=== PATIENT | male | born 1950 | race American Indian/Alaskan Native ===

== ENCOUNTER 2017-09-10 08:55 | Inpatient (IN) | payer MEDICARE ==
--- NOTE | 2017-09-10 09:28 | Emergency Department Report ---
ED Chest Pain HPI - General Stated Complaint: MO Time Seen by Provider: 09/10/17 09:05 - History of Present Illness Initial Comments: This is a 67 year-old male presents to the emergency department by EMS from home with complaint of left arm numbness, left-sided neck pain and some dizziness after taking his morning Plavix, aspirin and metoprolol. The patient was just discharged from [facility] yesterday after being here for a few days, having a left-sided heart cath and having a stent placed in the right coronary artery. These were the same symptoms approximately a minute a few days ago. His punch card operator is Dr. Mathews with [facility] and the catheterization was done by Dr. Santos. He denies any chest pain, shortness of breath, fever, nausea, vomiting or diaphoresis. He otherwise is previous history of coronary artery disease with previous MO, cardiomyopathy. - Related Data Home Medications Medication Instructions Recorded Confirmed Last Taken Losartan [Cozaar] 25 mg PO QDAY 09/10/17 09/10/17 09/10/17 07:30 Previous Rx's Medication Instructions Recorded Last Taken Type Aspirin [Aspirin BABY CHEW TAB] 81 mg PO DAILY #30 tab.chew 09/09/17 09/10/17 07 :30 Rx 8lmg AtorvaSTATin [Lipitor] 20 mg PO QHS #30 tablet 09/09/17 Unknown Rx Clopidogrel [Plavix] 75 mg PO DAILY #30 tablet 09/09/17 09/10/17 07:30 Rx 75mg Metoprolol [Lopressor TAB] 25 mg PO BID #60 tablet 09/09/17 09/10/17 07:30 Rx 25 mg Allergies Allergy/AdvReac Type Severity Reaction Status Date / Time acetaminophen [From Percocet] Allergy Vomiting Verified 07/22/13 21:46 oxycodone HCl [From Percocet] Allergy Vomiting Verified 07/22/13 21:46 Heart Score - HEART Score History: Moderately suspicious EKG: Non-specific Age: 45-65 Risk factors: > 3 risk factors or hx of atherosclerotic disease Troponin: 1-3x normal limit HEART Score: 6 - Critical Actions Critical Actions: 4-6 pts:12-16.6% risk of adverse cardiac event. Should be admitted ED Review of Systems ROS: Stated complaint: MO Other details as noted in HPI Comment: All other systems reviewed and negative Constitutional: denies: chills, fever Eyes: denies: eye pain, eye discharge, vision change ENT: denies: ear pain, throat pain Respiratory: denies: cough, shortness of breath, wheezing Cardiovascular: denies: chest pain, edema Gastrointestinal: denies: abdominal pain, nausea, diarrhea Genitourinary: denies: urgency, dysuria Musculoskeletal: other (left sided neck pain) Skin: denies: rash, lesions Neurological: numbness (left arm), other (dizziness) ED Past Medical Hx - Past Medical History Hx Hypertension: Yes Hx Heart Attack/AMI: Yes Additional medical history: high cholesterol - Surgical History Hx Coronary Stent: Yes Additional Surgical History: total left knee replacement, cardiac stent - Social History Smoking Status: Never Smoker Substance Use Type: None - Medications Home Medications: Home Medications Medication Instructions Recorded Confirmed Last Taken Type Aspirin [Aspirin BABY CHEW TAB] 81 mg PO DAILY #30 tab.chew 09/09/17 09/10/17 07:30 Rx 8lmg AtorvaSTATin [Lipitor] 20 mg PO QHS #30 tablet 09/09/17 09/10/17 Unknown Rx Clopidogrel [Plavix] 75 mg PO DAILY #30 tablet 09/09/17 09/10/17 09/10/17 07:30 Rx 75mg Metoprolol [Lopressor TAB] 25 mg PO BID #60 tablet 09/09/17 09/10/17 09/10/17 07 :30 Rx 25 mg Losartan [Cozaar] 25 mg PO QDAY 09/10/17 09/10/17 09/10/17 07:30 History ED Physical Exam - Other Other exam information: GENERAL: The patient is well-developed well-nourished. HENT: Normocephalic. Atraumatic. Patient has moist mucous membranes. EYES: Extraocular motions are intact. Pupils equal reactive to light bilaterally. NECK: Supple. Trachea is midline. CHEST/LUNGS: Clear to auscultation. There is no respiratory distress noted. HEART/CARDIOVASCULAR: Regular. There is no tachycardia. There is no murmur. ABDOMEN: Abdomen is soft, nontender. Patient has normal bowel sounds. There is no abdominal distention. SKIN: Skin is warm and dry. NEURO: The patient is awake, alert, and oriented. The patient is cooperative. The patient has no focal neurologic deficits. The patient has normal speech. MUSCULOSKELETAL: There is no tenderness or deformity. There is no limitation range of motion. There is no evidence of acute injury. Cap refill less than 2 seconds. Radial pulse was 2/4 bilaterally. ED Course Vital Signs 09/10/17 09/10/17 09/10/17 09:08 09:15 09:22 Temperature 98.1 F Pulse Rate 71 70 67 Respiratory 13 12 16 Rate Blood Pressure 128/93 O2 Sat by Pulse 99 100 Oximetry 09/10/17 09/10/17 09/10/17 09:29 09:30 09:45 Temperature Pulse Rate 74 68 66 Respiratory 18 17 15 Rate Blood Pressure 116/86 116/86 O2 Sat by Pulse 95 97 Oximetry 09/10/17 09/10/17 09/10/17 10:00 10:15 10:31 Temperature Pulse Rate 64 64 68 Respiratory 16 13 13 Rate Blood Pressure 105/76 105/76 113/83 O2 Sat by Pulse 98 98 98 Oximetry 09/10/17 09/10/17 09/10/17 10:45 11:01 11:15 Temperature Pulse Rate 68 74 65 Respiratory 16 17 10 L Rate Blood Pressure 113/83 112/88 112/88 O2 Sat by Pulse 98 97 97 Oximetry 09/10/17 09/10/17 09/10/17 11:31 11:45 11:47 Temperature Pulse Rate 68 67 82 Respiratory 17 17 Rate Blood Pressure 112/88 114/83 114/80 O2 Sat by Pulse 97 98 Oximetry 09/10/17 09/10/17 09/10/17 12:00 12:15 12:31 Temperature Pulse Rate 67 65 66 Respiratory 8 L 11 L 12 Rate Blood Pressure 108/79 108/79 108/79 O2 Sat by Pulse 99 96 97 Oximetry 09/10/17 09/10/17 09/10/17 12:45 13:00 13:15 Temperature Pulse Rate 74 64 65 Respiratory 15 17 18 Rate Blood Pressure 108/79 119/80 119/80 O2 Sat by Pulse 96 97 98 Oximetry 09/10/17 09/10/17 13:31 13:45 Temperature Pulse Rate 67 63 Respiratory 16 16 Rate Blood Pressure 119/80 119/80 O2 Sat by Pulse 95 97 Oximetry - Consultations Consultation #1: I spoke with the nanny babysitter for [facility], Dr. Ovalle. Originally the EKG showed concern for STEMI through EMS and a code STEMI was called but Dr Ovalle asked for it to be cancelled. Once the patient arrived, Dr. Ovalle and was sent an EKG from today's presentation as well as his last EKG from his previous admission and Dr. Ovalle does not feel that it is an ST elevation MO. He does recommend readmission and will contact his colleagues were rounding to see the patient has a consultation. 09/10/17 09:27 MARILYNN score - Marilynn Score Age > 65: (0) No Aspirin use within the Past 7 Days: (1) Yes 3 or more CAD Risk Factors: (1) Yes 2 or more Angina events in past 24 hrs: (0) No Known CAD with more than 50% Stenosis: (1) Yes Elevated Cardiac Markers: (1) Yes ST Deviation Greater than 0.5mm: (1) Yes MARILYNN Score: 5 ED Medical Decision Making - Lab Data Result diagrams: 09/10/17 11:17 09/10/17 11:17 - EKG Data -: EKG Interpreted by Me EKG shows normal: sinus rhythm, axis, intervals (prolonged UT interval), QRS complexes, ST-T waves (there are some ST elevations throughout the inferior and lateral leads) Rate: normal - EKG Data When compared to previous EKG there are: no significant change Interpretation: unchanged when compared t (09/07/17) - Radiology Data Radiology results: image reviewed interpreted by me: Chest x-ray does not show any acute process. There are no pleural effusions, obvious pneumonia and there is no pneumothorax. - Medical Decision Making The patient presents with some left arm numbness and some pain and left-sided neck but no chest pain. Originally the EKG was concern for ST elevation MO by it was seen by the punch card operator who did not feel it was ST elevation MO and did not warrant roofing laborer activation. Labs show some troponin elevation, although still in the "normal range" but the patient did just have a stent placed. The rest of labs are mostly unremarkable. Chest x-ray did not show any acute process. He will be admitted to the hospital by Dr. Zhou, and will be seen by cardiology as a consultation. - Differential Diagnosis MO, Costochondritis, GERD, Pneumonia Critical Care Time: No Critical care attestation.: If time is entered above; I have spent that time in minutes in the direct care of this critically ill patient, excluding procedure time. ED Disposition Clinical Impression: Status post cardiac catheterization, Stented coronary artery Chest pain Qualifiers: Chest pain type: unspecified Qualified Code(s): R07.9 - Chest pain, unspecified Disposition: -09 OP ADMIT IP TO THIS HOSP Is pt being admited?: Yes Condition: Stable Time of Disposition: 14:37
[2017-09-10 09:43] LABS: INR 0.98 (0.87-1.13)
[2017-09-10 09:45] LABS: Hematocrit 46.5 % (35.5-45.6); Hemoglobin 15.5 gm/dl (11.8-15.2); Mean Corpuscular HGB Conc 33 % (32-34); Mean Corpuscular Hemoglobin 31 pg (28-32); Mean Corpuscular Volume 93 fl (84-94); Platelet Count 149 K/mm3 (140-440); Red Blood Count 4.99 M/mm3 (3.65-5.03); Red Cell Distribution Width 12.6 % (13.2-15.2)
[2017-09-10 09:48] LABS: Alanine Aminotransferase 22 units/L (7-56); Albumin 3.9 g/dL (3.9-5); BUN/Creatinine Ratio 13; Blood Urea Nitrogen 15 mg/dL (9-20); Calcium 9.2 mg/dL (8.4-10.2); Hemolysis Index 6
[2017-09-10 10:34] LABS: Total Cells Counted 100
[2017-09-10 10:35] LABS: RBC Morphology Normal
--- NOTE | 2017-09-10 10:43 | History and Physical Report ---
History of Present Illness Date of examination: 09/10/17 Date of admission: 09/10/17 Chief complaint: Numbness left arm History of present illness: Pt is a 67 y/o male who has history of CAD s/p PCI x 2 the last one was yesterday, prediabetes and hypertension and was discharged yesterday from this hospital for left flank chest pain. Had normal cardiac enzymes with abnormal stress thallium.Drug elluting stent was place in [facility]. Presented to [facility] ED today on accound of numbness of the left arm after talking his med sthis morning which includes Metoprolol, ASA, plavix, Atorvastatin and Losartan. Denies any chest pain. No shortness of breath, fever PND. EKG at [facility] ED showed mild ST elevation. 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 Ovalle was consuted over the phone by the ED doctor in my present afte reviewing the EKG and did not think there was any ischemic change. CT head that was done 4 day ago showed no evidenced of ischemia. Admissionwas requested for further work up Past History Past Medical History: CAD, hypertension, hyperlipidemia Past Surgical History: PTCA Social history: denies: smoking, alcohol abuse Family history: hypertension Medications and Allergies Allergies Allergy/AdvReac Type Severity Reaction Status Date / Time acetaminophen [From Percocet] Allergy Vomiting Verified 07/22/13 21:46 oxycodone HCl [From Percocet] Allergy Vomiting Verified 07/22/13 21:46 Home Medications Medication Instructions Recorded Confirmed Last Taken Type Simvastatin PO DAILY 07/22/13 07/22/13 07/22/13 07:00 History Aspirin [Aspirin BABY CHEW TAB] 81 mg PO DAILY #30 tab.chew 09/09/17 Unknown Rx AtorvaSTATin [Lipitor] 20 mg PO QHS #30 tablet 09/09/17 Unknown Rx Clopidogrel [Plavix] 75 mg PO DAILY #30 tablet 09/09/17 Unknown Rx Lisinopril [Zestril TAB] 5 mg PO QDAY #30 tablet 09/09/17 Unknown Rx Metoprolol [Lopressor TAB] 25 mg PO BID #60 tablet 09/09/17 Unknown Rx Ranitidine HCl [Acid Hand Bulldozer] 150 mg PO Q12HRT #60 tablet 09/09/17 Unknown Rx Review of Systems Constitutional: no fever, no chills, no anorexia, no fatigue Ears, nose, mouth and throat: no ear pain, no ear discharge, no tinnitis, no decreased hearing Cardiovascular: chest pain, edema, syncope, no orthopnea, no palpitations, no rapid/irregular heart beat Respiratory: no cough, no cough with sputum, no excessive sputum, no hemoptysis Gastrointestinal: abdominal pain, vomiting Musculoskeletal: neck stiffness, neck pain, shooting arm pain, arm numbness/ tingling Integumentary: no rash, no pruritis, no redness Neurological: no transient paralysis, no paralysis, no weakness, no parathesias Psychiatric: no anxiety, no memory loss, no change in sleep habits, no sleep disturbances Endocrine: no cold intolerance, no heat intolerance, no polyphagia Exam - Constitutional Vitals: Temp Pulse Resp BP Pulse Ox 98.1 F 74 18 128/93 100 09/10/17 09:22 09/10/17 09:29 09/10/17 09:29 09/10/17 09:22 09/10/17 09:22 General appearance: Present: no acute distress, well-nourished - EENT Eyes: Present: PERRL - Neck Neck: Present: supple, normal ROM - Respiratory Respiratory effort: normal - Cardiovascular Heart Sounds: Present: S1 & S2. Absent: rub, click - Extremities Extremities: pulses symmetrical, No edema Peripheral Pulses: within normal limits - Abdominal General gastrointestinal: Present: soft, non-tender, non-distended, normal bowel sounds Male genitourinary: Present: normal - Integumentary Integumentary: Present: clear, warm, dry - Musculoskeletal Musculoskeletal: gait normal, strength equal bilaterally - Psychiatric Psychiatric: appropriate mood/affect, intact judgment & insight - Neurologic Neurologic: CNII-XII intact, moves all extremities Results - Labs CBC & Chem 7: 09/10/17 09:15 09/10/17 09:15 Labs: Abnormal lab results 09/10/17 09/10/17 Range/Units 09:15 09:15 WBC 4.3 L (4.5-11.0) K/mm3 Hgb 15.5 H (11.8-15.2) gm/dl Hct 46.5 H (35.5-45.6) % RDW 12.6 L (13.2-15.2) % Glucose 159 H (75-100) mg/dL Assessment and Plan - Numbness left arm - Abnormal EKG - Prediabeted with A1c 6.2% - Hyperlipidemial - Hypertenison Admit Tele Serial Mitesh ASA, NTG, Morphin, Statin, oxygen, BB Commence oral home antihypertensive Losartan and DVT prophylaxis with lovenox and GI with Pecid. Obrifn MTRI of the brainwithour contrst for numbnnes olfteh arm. Cardiology consulted
[2017-09-10] MEDS ORDERED: SODIUM CHLORIDE FLUSH SYRINGE 10 ML IV PRN (10:52)
[2017-09-10] MEDS ORDERED: MORPHINE IV PRN (10:52)
[2017-09-10] MEDS ORDERED: BABY ASPIRIN PO STA (10:52)
[2017-09-10] MEDS ORDERED: NITROSTAT SL PRN (10:52)
[2017-09-10 11:45] LABS: Basophils # (Auto) 0.1 K/mm3 (0.0-0.1); Basophils % (Auto) 2.2 % (0.0-1.8); Eosinophils # (Auto) 0.2 K/mm3 (0.0-0.4); Eosinophils % (Auto) 4.7 % (0.0-4.3); Hematocrit 45.5 % (35.5-45.6); Hemoglobin 15.2 gm/dl (11.8-15.2); Lymphocytes # (Auto) 1.1 K/mm3 (1.2-5.4); Lymphocytes % (Auto) 25.9 % (13.4-35.0); Mean Corpuscular HGB Conc 33 % (32-34); Mean Corpuscular Hemoglobin 31 pg (28-32); Mean Corpuscular Volume 92 fl (84-94); Monocytes # (Auto) 0.6 K/mm3 (0.0-0.8); Monocytes % (Auto) 14.5 % (0.0-7.3); Platelet Count 152 K/mm3 (140-440); Red Blood Count 4.94 M/mm3 (3.65-5.03); Red Cell Distribution Width 12.5 % (13.2-15.2)
[2017-09-10] MEDS: NITRO-BID 2% TP SCH ×2 (11:47→18:00)
--- NOTE | 2017-09-10 11:53 | XRay Report ---
AP CHEST : 09/10/17 08:55:00 CLINICAL: Chest pain. COMPARISON:09/07/17 FINDINGS: Normal heart and pulmonary vessels.Aortic tortuosity. The lungs are normally expanded and clear. The bones and soft tissues are unremarkable. IMPRESSION: No acute cardiopulmonary process.
[2017-09-10 13:28] LABS: BUN/Creatinine Ratio 12; Blood Urea Nitrogen 15 mg/dL (9-20); Calcium 9.1 mg/dL (8.4-10.2); Hemolysis Index 7
[2017-09-11] MEDS: NITRO-BID 2% TP SCH ×3 (05:35→17:55)
[2017-09-11] MEDS ORDERED: NACL 0.9% 1000 ML 1,000 ML IV ONE (07:53)
--- NOTE | 2017-09-11 07:54 | Discharge Summary ---
Providers - Providers Date of Admission: 09/10/17 13:46 Date of discharge: 09/11/17 Attending physician: BRYAN SOLOMON 09/10/17 Consult to Cardiac Rehabilitation [CONS] Routine Reason For Exam: Phase I 09/10/17 09:46 Consult to Physician [CONS] Routine Consulting Provider: JANIA BYERS Reason For Exam: chest pain, recent stent placement Place consult to:: CARDIO Notified:: Y Was contact made?: Yes If yes, spoke with:: Dr Fernandez Comment:: DR FERNANDEZ TO TEXT DR Osvaldo SINGH 09/10/17 10:53 Consult to Cardiology [CONS] Routine Consulting Provider: JANIA BYERS Reason For Exam: Chest pain in a pt with CAD s/p stent placment x2 Primary care physician: BRYAN SOLOMON Hospitalization Reason for admission: coronary artery disease, left arm numbness. Condition: Stable Pertinent studies: Enzymes were normal, MRI of the jeff Procedures: none Hospital course: Pt is a 67 y/o male who has history of CAD s/p PCI x 2 the last one was 09/09/17 , prediabetes and hypertension and was discharged 09/09/17 from this hospital for left flank chest pain. Had normal cardiac enzymes with abnormal stress thallium. Cardiac cath was done. Patent left anterior Descending arterial stent identified. Significantly occluded RCA identified. Drug elluting stent was place in the RCA. Presented to the ED today on accound of numbness of the left arm after talking his med this morning which includes Metoprolol, ASA, plavix, Atorvastatin and Losartan. Denies any facial droop, slurred speech or gait disturbance. No chest pain. No shortness of breath, fever, PND. EKG at the ED showed mild ST elevation. 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 Fernandez was consuted over the phone by the ED doctor in my present after reviewing the EKG he did not think there was any ischemic change. CT head that was done 4 day ago showed no evidenced of ischemia. Admission was requested for further work up. Patient was commenced on aspirin and Naprosyn recognizes done. Cardiology consult was obtained. He was of the patient has no evidence of ischemic changes cardiac enzymes were normal and EKG was unremarkable. He has elevated glucose level. Was commenced on glimepiride. Del Whiteside and metformin because patient had an IV diet test and cardiac catheterization 2 days ago. Numbness of the left arm has resolved. CT scan was done on admission was unremarkable. MRI obtained today. Result pending. Disposition: DC-01 TO HOME OR SELFCARE Core Measure Documentation - Palliative Care Palliative Care/ Comfort Measures: Not Applicable - Core Measures Any of the following diagnoses?: none Exam - Physical Exam Narrative exam: Constitutional: Well-nourished well-developed. In no distress Head: Normocephalic atraumatic Eyes: Pupils are equal round and reactive to light Nose: No enlarged turbinates, no septal deviation. Mouth: Moist mucous membranes. Neck: Supple no thyromegaly. No bruit. No JVD Heart: Regular rate and rhythm, S1-S2 abnormal. No rubs murmurs or gallop Lungs: Clear to auscultation bilaterally no rales or rhonchi Abdomen: Soft, nontender. Bowel sound are present. Extremities: No edema no cyanosis and no clubbing. Neuro: Alert oriented Oriented x3. No focal sensory or motor deficit. Skin: No rashes no hyperemic spots Psychiatry: Euthymic. Calm. - Constitutional Vitals: Temp Pulse Resp BP Pulse Ox 97.5 F L 74 19 112/73 99 09/11/17 05:03 09/11/17 05:35 09/11/17 05:03 09/11/17 05:35 09/11/17 05:03 Plan Activity: advance as tolerated Weight Bearing Status: Touch Down Weight Bearing Diet: diabetic Follow up with: BRYAN SOLOMON MD [Primary Care Provider] - 3-5 Days Prescriptions: metFORMIN [Glucophage] 500 mg PO BID #60 tablet
--- NOTE | 2017-09-11 09:37 | Progress Note ---
Assessment and Plan - Patient Problems (1) Chest pain Current Visit: Yes Status: Acute Qualifiers: Chest pain type: unspecified Qualified Code(s): R07.9 - Chest pain, unspecified Plan to address problem: SYMPTOMS RESOLVED & NO SS OF ACS,,,OK TO D\C WITH OFFICE F\U,,,DOESN'T LIKE METOPROLOL,,,IS ON LIPITOR AT HOME (2) Stented coronary artery Current Visit: Yes Status: Acute Subjective Date of service: 09/11/17 Interval history: NO C\O,,,WANTS TO GO Objective Vital Signs Temp Pulse Resp BP BP Pulse Ox 09/11/17 08:48 100 09/11/17 05:35 74 112/73 09/11/17 05:03 97.5 F L 74 19 112/73 99 09/11/17 05:00 67 09/11/17 01:25 98.1 F 76 19 101/59 09/10/17 20:00 69 09/10/17 19:12 97.6 F 72 17 98/78 97 09/10/17 18:00 58 L 104/72 09/10/17 16:33 65 104/72 96 09/10/17 13:51 62 18 119/80 97 09/10/17 13:45 63 16 119/80 97 09/10/17 13:31 67 16 119/80 95 09/10/17 13:15 65 18 119/80 98 09/10/17 13:00 64 17 119/80 97 09/10/17 12:45 74 15 108/79 96 09/10/17 12:31 66 12 108/79 97 09/10/17 12:15 65 11 L 108/79 96 09/10/17 12:00 67 8 L 108/79 99 09/10/17 11:47 82 114/80 09/10/17 11:45 67 17 114/83 98 09/10/17 11:31 68 17 112/88 97 09/10/17 11:15 65 10 L 112/88 97 09/10/17 11:01 74 17 112/88 97 09/10/17 10:45 68 16 113/83 98 09/10/17 10:31 68 13 113/83 98 09/10/17 10:15 64 13 105/76 98 09/10/17 10:00 64 16 105/76 98 09/10/17 09:45 66 15 116/86 97 - Physical Examination General: Appears Well HEENT: Positive: PERRL Neck: Positive: neck supple Cardiac: Positive: Regular Rate Lungs: Positive: clear to auscultation Neuro: Positive: Grossly Intact Abdomen: Positive: Unremarkable - Labs and Meds Cardiac Enzymes 09/10/17 Range/Units 09:15 AST 18 (5-40) units/L Coagulation 09/10/17 Range/Units 09:15 PT 13.5 (12.2-14.9) Sec. INR 0.98 (0.87-1.13) APTT 27.0 (24.2-36.6) Sec. CBC 09/10/17 09/10/17 Range/Units 09:15 11:17 WBC 4.3 L 4.2 L (4.5-11.0) K/mm3 RBC 4.99 4.94 (3.65-5.03) M/mm3 Hgb 15.5 H 15.2 (11.8-15.2) gm/dl Hct 46.5 H 45.5 (35.5-45.6) % Plt Count 149 152 (140-440) K/mm3 Lymph # 1.1 L (1.2-5.4) K/mm3 Swisher # 0.6 (0.0-0.8) K/mm3 Eos # 0.2 (0.0-0.4) K/mm3 Baso # 0.1 (0.0-0.1) K/mm3 Comprehensive Metabolic Panel 09/10/17 09/10/17 Range/Units 09:15 11:17 Sodium 140 141 (137-145) mmol/L Potassium 4.7 4.8 (3.6-5.0) mmol/L Chloride 99.9 100.7 (98-107) mmol/L Carbon Dioxide 28 25 (22-30) mmol/L BUN 15 15 (9-20) mg/dL Creatinine 1.2 1.3 (0.8-1.5) mg/dL Glucose 159 H 158 H (75-100) mg/dL Calcium 9.2 9.1 (8.4-10.2) mg/dL AST 18 (5-40) units/L ALT 22 (7-56) units/L Alkaline Phosphatase 88 (35-129) units/L Total Protein 6.5 (6.3-8.2) g/dL Albumin 3.9 (3.9-5) g/dL
[2017-09-11] MEDS: AMARYL PO SCH (10:24)
[2017-09-11] MEDS: PLAVIX PO SCH (10:24)
--- NOTE | 2017-09-11 12:14 | Consultation ---
HISTORY OF PRESENT ILLNESS: The patient is a 67-year-old male, who has a history of coronary disease and he had a coronary stent placed 3 days ago. He is here with left arm discomfort. There has been no chest pain, shortness breath, palpitations, dizziness, claudication or edema. He did not describe any infectious symptoms or swelling. He has had some transient right upper discomfort. He denies any history of arrhythmia, strokes or heart failure. He has been compliant with medications. He describes remote history of previous stent and heart attack. PAST HISTORY: ALLERGIES: PERCOCET. SOCIAL HISTORY: Smoking: None. Alcohol: No heavy use. FAMILY HISTORY: Negative for heart disease. PREVIOUS SURGERIES: Bilateral knee surgery. REVIEW OF SYSTEMS: Does not describe any other complaints or medical problems at this time other than some neck arthritis in the past. PHYSICAL EXAMINATION: GENERAL: Well-developed, well-nourished, no acute distress. HEENT: Alert, oriented and cooperative. Mental status normal. Eyes, nose, and throat unremarkable. NECK: Reveals no JVD or bruits. Neck is supple, no masses. LUNGS: Clear. No labored respirations. HEART: Regular rhythm. Soft S4, no murmurs or rubs. ABDOMEN: Soft, nontender, no masses. EXTREMITIES: No cyanosis, clubbing, edema. Peripheral pulses are intact. NEUROLOGICAL: Symmetrical. SKIN: Clear. EKG; previous anteroseptal VA, inferolateral ST elevation, no serial changes. IMPRESSION: Coronary disease with arm discomfort, findings are not suggestive of an acute coronary syndrome. He can perform serial troponin levels and consider cervical spine series. JOB# [id number] JDS/NTS
--- NOTE | 2017-09-11 14:12 | Magnetic Resonance Report ---
FINAL REPORT EXAM: MR BRAIN WO CON HISTORY: left arm weakness TECHNIQUE: MRI of the brain without IV contrast. PRIORS: None currently available. FINDINGS: Punctate restricted diffusion noted within the left frontal parietal lobe on series 4:29 and two more in the right frontal parietal lobe on series 4:28. There may be a punctate lesion in the left temporal lobe on image 15 and another 1 within the right cerebellar hemisphere and left posterior dorie on image 13. Small restricted diffusion noted within the left cerebellar hemisphere on image 11 also identified. T2/FLAIR hyperintensities in the periventricular and subcortical white matter are nonspecific. Midline structures are unremarkable. There is no tonsillar ectopy. Age appropriate parmar-white matter differentiation is noted. There is no hydrocephalus. There is no mass. There is no hemorrhage. There is no midline shift. The CP angles are grossly noted. Major flow voids are present. [id number] mucosal thickening with air-fluid level in the right maxillary sinus. Mild mucosal thickening in both ethmoid sinuses. Globes are intact. Calvarial signal characteristics are grossly unremarkable. Extracranial soft tissues are intact. IMPRESSION: Suspect embolic acute small infarcts in both cerebral and cerebellar hemispheres. Nonspecific T2 hyperintensities in the white matter. Differential diagnosis includes migraines, microvascular ischemic disease, demyelinating process, encephalitis/encephalopathy, and trauma. Chronic ischemic disease favored.
--- NOTE | 2017-09-11 15:35 | Event Note ---
Date: 09/11/17 MRI report came back as acute bi hemispheric stroke. Ordered ECHO, MRA or head and neck. Pt had no neurodeficit
[2017-09-11] MEDS: ASPIRIN PO SCH (16:35)
[2017-09-12] MEDS: NITRO-BID 2% TP SCH (05:33)
[2017-09-12] MEDS: AMARYL PO SCH (09:03)
[2017-09-12] MEDS: ASPIRIN PO SCH (09:03)
[2017-09-12] MEDS: PLAVIX PO SCH (09:03)
--- NOTE | 2017-09-12 10:02 | Progress Note ---
Assessment and Plan - Acute bi hemispheric embolic stroke - Numbness left arm - resolved - Abnormal EKG - Prediabeted with A1c 6.2% - Hyperlipidemia - Hypertenison MRA of elvira neck and brain ordered. ECHO Optiomize ASA to 325 Neurologisdt consulted. Discused with him Statin, oxygen, Commence oral home antihypertensive Losartan DVT prophylaxis with lovenox and GI with Pecid. Discussed at lent with the pt and his in with room Subjective Date of service: 09/12/17 Principal diagnosis: acute embolic stroke Interval history: Pt sitting up in bed, denies any liberalizing weakness, slurred speech or facial droop. Complaint of obsessional weakness Objective - Constitutional Vitals: Vital Signs - 12hr 09/12/17 09/12/17 09/12/17 00:07 05:08 05:33 Temperature 97.6 F 98.3 F Pulse Rate 71 72 66 Respiratory 20 20 Rate Blood Pressure 106/74 97/63 97/63 Blood Pressure [Left] O2 Sat by Pulse 97 97 Oximetry 09/12/17 09/12/17 06:00 09:00 Temperature 97.8 F Pulse Rate 75 73 Respiratory 20 Rate Blood Pressure Blood Pressure 114/78 [Left] O2 Sat by Pulse 95 Oximetry General appearance: Present: no acute distress, well-nourished - EENT Eyes: PERRL, EOM intact - Neck Neck: supple, normal ROM - Respiratory Respiratory effort: normal Respiratory: bilateral: CTA - Cardiovascular Rhythm: regular Heart Sounds: Present: S1 & S2. Absent: gallop, rub Extremities: pulses intact, No edema, normal color, Full ROM - Gastrointestinal General gastrointestinal: Present: soft, non-tender, non-distended, normal bowel sounds - Integumentary Integumentary: clear, warm, dry - Musculoskeletal Musculoskeletal: 1, strength equal bilaterally - Neurologic Neurologic: CNII-XII intact, moves all extremities - Psychiatric Psychiatric: memory intact, appropriate mood/affect, intact judgment & insight - Labs CBC & Chem 7: 09/10/17 11:17 09/10/17 11:17
--- NOTE | 2017-09-12 16:10 | Progress Note ---
Assessment and Plan Acute Ischemic CVA Hx of CAD with stenting of the right coronary artery, using a drug-eluting stent , last week. on DAPT with plavix and aspirin Resolving Ischemic Cardiomyopathy EF 45-50% on echo 11/2014 Hypertension Plan: Echocardiogram for r/o cardioembolic source. Medical therapy for coronary artery disease without interruption of plavix and aspirin. Subjective Date of service: 09/12/17 Principal diagnosis: acute embolic stroke Interval history: Patient denies chest pain and shortness of breath. Admits to compliance with aspirin and plavix since discharge. Objective Vital Signs Temp Pulse Resp BP BP Pulse Ox 09/12/17 15:00 97.6 F 81 18 113/84 100 09/12/17 10:00 17 99 09/12/17 09:00 97.8 F 73 20 114/78 95 09/12/17 06:00 75 09/12/17 05:33 66 97/63 09/12/17 05:08 98.3 F 72 20 97/63 97 09/12/17 00:07 97.6 F 71 20 106/74 97 09/11/17 20:00 92 H 09/11/17 19:12 98.3 F 78 17 96/72 94 09/11/17 17:55 69 112/73 09/11/17 17:10 97.9 F 70 18 112/73 96 - Physical Examination General: Appears Well HEENT: Positive: PERRL Neck: Positive: trachea midline Cardiac: Positive: Reg Rate and Rhythm Lungs: Positive: Decreased Breath Sounds Neuro: Positive: Grossly Intact
[2017-09-12] MEDS ORDERED: ATIVAN IV ONE (16:30)
[2017-09-12] MEDS: LOPRESSOR PO SCH (22:03)
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
--- NOTE | 2017-09-13 09:17 | Progress Note ---
Assessment and Plan - Acute bi hemispheric embolic stroke - Numbness left arm - resolved - Abnormal EKG - Prediabeted with A1c 6.2% - Hyperlipidemia - Hypertenison MRA of [facility] neck and brain ordered. ECHO Optiomize ASA to 325 Neurologisdt consulted. Discused with him Statin, oxygen, Commence oral home antihypertensive Losartan DVT prophylaxis with lovenox and GI [facility] with room Subjective Date of service: 09/13/17 Principal diagnosis: acute embolic stroke Interval history: Pt sitting up in bed, denies any literalizing weakness, slurred speech or facial droop. Complaint of occassional weakness. could not haf MRA done yesterday b/c phobia Objective - Exam Narrative Exam: Constitutional: Well-nourished well-developed. In no distress Head: Normocephalic atraumatic Eyes: Pupils are equal round and reactive to light Nose: No enlarged turbinates, no septal deviation. Mouth: Moist mucous membranes. Neck: Supple no thyromegaly. No bruit. No JVD Heart: Regular rate and rhythm, S1-S2 abnormal. No rubs murmurs or gallop Lungs: Clear to auscultation bilaterally no rales or rhonchi Abdomen: Soft, nontender. Bowel sound are present. Extremities: No edema no cyanosis and no clubbing. Neuro: Alert oriented Oriented x3. No focal sensory or motor deficit. Skin: No rashes no hyperemic spots Psychiatry: Euthymic. Calm. - Constitutional Vitals: Vital Signs - 12hr 09/12/17 09/12/17 09/12/17 22:03 22:04 23:45 Temperature 98.1 F Pulse Rate 76 63 Respiratory 18 18 Rate Blood Pressure 114/75 112/74 O2 Sat by Pulse 95 Oximetry 09/13/17 09/13/17 05:27 05:58 Temperature 98.3 F Pulse Rate 62 62 Respiratory 18 Rate Blood Pressure 100/63 O2 Sat by Pulse 97 Oximetry - Labs CBC & Chem 7: 09/10/17 11:17 09/10/17 11:17 Labs: Abnormal lab results 09/12/17 09/12/17 Range/Units 08:22 21:04 POC Glucose 110 H 110 H (70-105)
[2017-09-13] MEDS: PLAVIX PO SCH (10:53)
[2017-09-13] MEDS: AMARYL PO SCH (10:53)
[2017-09-13] MEDS: LOPRESSOR PO SCH (10:53)
[2017-09-13] MEDS: ASPIRIN PO SCH (10:53)
--- NOTE | 2017-09-13 11:03 | Cat Scan Report ---
CTA NECK: HISTORY: Stroke, embolic strokes. TECHNIQUE: Helical CT following IV contrast. Sagittal and coronal reformatted images. 3D volume rendering technique. Stenosis was calculated using NASCET criteria. FINDINGS: The visualized aortic arch, innominate artery and proximal bilateral subclavian arteries are widely patent with less than 20% stenosis. An aortic arch variant is present. The left vertebral artery arises from the aortic arch just anterior to the left common carotid artery. The right vertebral artery is dominant. Within the right carotid system: Less than 20% stenosis. Within the left carotid system: Less than 20% stenosis. The cervical vertebral arteries are patent with less than 20% stenosis. IMPRESSION: Unremarkable CTA of the neck.
--- NOTE | 2017-09-13 11:05 | Cat Scan Report ---
CTA HEAD: HISTORY: Stroke, embolic stroke. TECHNIQUE: Helical CT images after IV contrast with 0.625mm reformations. Sagittal and coronal reformats. Rotational MIP images. 3D volume rendering technique. FINDINGS: The arterial structures of the anterior and posterior circulations are patent throughout. No evidence for stenosis, occlusion or aneurysm. There is less than 20% stenosis throughout the cerebral circulation. Small bilateral posterior communicating arteries are noted. IMPRESSION: Unremarkable CTA head.
--- NOTE | 2017-09-13 14:22 | Progress Note ---
Assessment and Plan Acute Ischemic CVA Hx of CAD with stenting of the right coronary artery, using a drug-eluting stent , last week. on DAPT with plavix and aspirin Ischemic Cardiomyopathy EF 45-50% on echo 11/2014 EF 35-40% on echocardiogram this admission Hypertension Continue medical therapy for coronary artery disease and ischemic cardiomyopathy. Subjective Date of service: 09/13/17 Principal diagnosis: acute embolic stroke Interval history: Patient denies chest pain and shortness of breath. Objective Vital Signs Temp Pulse Resp BP BP Pulse Ox 09/13/17 11:00 19 98 09/13/17 10:53 65 117/74 09/13/17 05:58 62 09/13/17 05:27 98.3 F 62 18 100/63 97 09/12/17 23:45 98.1 F 63 18 112/74 95 09/12/17 22:04 18 09/12/17 22:03 76 114/75 09/12/17 19:22 98.4 F 76 18 114/75 96 09/12/17 15:00 97.6 F 81 18 113/84 100 - Physical Examination General: No Apparent Distress HEENT: Positive: PERRL Neck: Positive: trachea midline Cardiac: Positive: Reg Rate and Rhythm Lungs: Positive: Decreased Breath Sounds Neuro: Positive: Grossly Intact
[2017-09-13 18:08] VITALS: BP 97/69
--- NOTE | 2017-09-13 18:14 | Discharge Summary ---
Providers - Providers Date of Admission: 09/10/17 13:46 Date of discharge: 09/13/17 Attending physician: BRYAN SOLOMON 09/10/17 Consult to Cardiac Rehabilitation [CONS] Routine Reason For Exam: Phase I 09/10/17 09:46 Consult to Physician [CONS] Routine Consulting Provider: JANIA BYERS Reason For Exam: chest pain, recent stent placement Place consult to:: CARDIO Notified:: Y Was contact made?: Yes If yes, spoke with:: Dr Fernandez Comment:: DR FERNANDEZ TO TEXT DR Osvaldo SINGH 09/10/17 10:53 Consult to Cardiology [CONS] Routine Consulting Provider: JANIA BYERS Reason For Exam: Chest pain in a pt with CAD s/p stent placment x2 09/11/17 15:35 Consult to Physician [CONS] Routine Consulting Provider: MACARIO CONNELL Reason For Exam: acute embolic stoke Place consult to:: Macario connell Notified:: PLEASE CALL MD IN AM Was contact made?: No Comment:: ADDED TO LIST Primary care physician: BRYAN SOLOMON Hospitalization Reason for admission: Numbness left arm. ACUTE EMBOLIC STOKE Condition: Stable Pertinent studies: MRI of the brain that showed acute bi-hemispheric acute embolic stoke CTA of elvira neck and brain fina were normal Bubble ECHO that showed no intramural thrombus. Has reduced Ejection fraction of 35-40% Normal CXR Procedures: None Hospital course: Pt is a 67 y/o male who has history of CAD s/p PCI x 2 the last one was yesterday, prediabetes and hypertension and was discharged yesterday from this hospital for left flank chest pain. Had normal cardiac enzymes with abnormal stress thallium. Drug elluting stent was place in the RCA. Presented to the ED today on account of numbness of the left arm after talking his med this morning which includes Metoprolol, ASA, plavix, Atorvastatin and Losartan. Denies any chest pain. No shortness of breath, fever PND. EKG at the ED showed mild ST elevation. Tool Designer Apprentice Dr. Feranndez was consulted over the phone by the ED doctor in my present. After reviewing the EKG he did not think there was any ischemic change. CT head that was done 4 day ago showed no evidenced of ischemia. Admission was requested for further work up. Pt was continued on ASA 325 mg, Plavix 75 mg qd, Carvedilol 25 mg bid, Lisinopril 10 mg qd. CTA of the head and neck was normal. He was also commence on Glimeperide 1 mg qd for prediabetes. Metformin was avoided because for recent dye tests. ECHO of the heart showed no intramural thrombus but reduced LVEF of 35-40%. Numbness in the left arm continue to improve with occasional execration. Neurology consult was obtained at this admission and he was of the view that pt may be discharged after these studies having discussed the result with him. He advised that pt may had MRI of the neck on out pt for possible cervical radiculopathy. He is thefer being discharged today to f/u with PCP in 3 day, Tool Designer Apprentice in 5 days. Discharge planning was discussed at length with the pt and his who was in the room during this evaluation. Both expressed understanding Disposition: DC-01 TO HOME OR SELFCARE Time spent for discharge: 35 mins Core Measure Documentation - Palliative Care Palliative Care/ Comfort Measures: Not Applicable - Core Measures Any of the following diagnoses?: none Exam - Physical Exam Narrative exam: Constitutional: Well-nourished well-developed. In no distress Head: Normocephalic atraumatic Eyes: Pupils are equal round and reactive to light Nose: No enlarged turbinates, no septal deviation. Mouth: Moist mucous membranes. Neck: Supple no thyromegaly. No bruit. No JVD Heart: Regular rate and rhythm, S1-S2 abnormal. No rubs murmurs or gallop Lungs: Clear to auscultation bilaterally no rales or rhonchi Abdomen: Soft, nontender. Bowel sound are present. Extremities: No edema no cyanosis and no clubbing. Neuro: Alert oriented Oriented x3. No focal sensory or motor deficit. Skin: No rashes no hyperemic spots Psychiatry: Euthymic. Calm. - Constitutional Vitals: Temp Pulse Resp BP Pulse Ox 98.7 F 73 18 97/69 96 09/13/17 16:42 09/13/17 16:42 09/13/17 16:42 09/13/17 16:42 09/13/17 16:42 Plan Activity: advance as tolerated Weight Bearing Status: Weight Bear as Tolerated Diet: diabetic Follow up with: BRYAN SOLOMON MD [Primary Care Provider] - 3-5 Days JANIA YBERS MD [Staff Physician] - 7 Days Prescriptions: Aspirin [Aspirin TAB] 325 mg PO QDAY #30 tablet Carvedilol 12.5 mg PO BID #60 tablet metFORMIN [Glucophage] 500 mg PO BID #60 tablet
== END 2017-09-13 19:15 | disposition home or self-care (01) | DRG 66 ==
LOC: ED 08:55 → 4A 13:46
PROVIDERS: ADMIT Family Medicine; ATTEND Family Medicine
DX: I63.9 Cerebral infarction, unspecified (principal); I10 Essential (primary) hypertension; E78.5 Hyperlipidemia, unspecified; M54.12 Radiculopathy, cervical region
CPT/HCPCS: 36415; 70496; 70498; 70551; 71045; 80048; 80053; 82962; 84484; 85007; 85025; 85610; 85730; 93005; 93010; 93306; A9270-GY; J2060; J2270; Q9967